=== PATIENT | male | born 1990 | race Caucasian/White ===

== ENCOUNTER 2018-04-27 11:01 | Emergency (ER) | payer OTHER | END 2018-04-27 12:35 | disposition home or self-care (01) | LOC: M ED 11:01 | DX: S90.31XA Contusion of right foot, initial encounter (principal); W17.89XA Other fall from one level to another, initial encounter; Y92.59 Other trade areas as the place of occurrence of the external cause; Y99.0 Civilian activity done for income or pay | CPT/HCPCS: 73630 ==

== ENCOUNTER → 2020-05-20 | Outpatient (CLI) | payer OTHER ==
[~2020-05-20] MED LIST: IBUP200C25 PO
--- NOTE | 2020-05-20 13:55 | REP ---
REASON: Pain. PRIORS: None. There is a distal radial fracture seen transversely along the base of the radial styloid. This is nondisplaced and there is no evidence of an intra-articular component. IMPRESSION: Distal radial fracture. Electronically Signed by Nicho Meyer DO 05/20/2020 05:26 P
--- NOTE | 2020-05-20 13:57 | REP ---
REASON: Pain after trauma. PRIORS: None. There is a nondisplaced fracture involving the distal radius at the level of the base of the radial styloid. There is no evidence of a concomitant ulnar fracture. IMPRESSION: Distal radial fracture as described above. Electronically Signed by Nicho Meyer DO 05/20/2020 05:26 P
== END ==
LOC: M WUC 09:09
PROVIDERS: ATTEND Nurse Practitioner Family
DX: M79.631 Pain in right forearm (principal); M25.531 Pain in right wrist; S52.501A Unspecified fracture of the lower end of right radius, initial encounter for closed fracture

== ENCOUNTER 2020-07-07 09:23 | Emergency (ER) | payer OTHER ==
[~2020-07-07] VITALS: Ht 180.3 cm; Wt 84.0 kg
--- NOTE | 2020-07-07 09:56 | REPVR ---
PROCEDURE INFORMATION: Exam: XR Right Wrist Exam date and time: 07/07/2020 9:45 AM Age: 30 years old Clinical indication: Pain and injury or trauma; Injury history: Was installing large window that ended up shattering; Work related; Initial encounter; Swelling (edema); Right; Injury details: PT states had recently FX HX wrist and was just cleared and went to install large window and it shattered TECHNIQUE: Imaging protocol: XR Right wrist. Views: 3 or more views. COMPARISON: CR WRIST COMPLETE 05/20/2020 9:25 AM FINDINGS: Bones/joints: Distal radial fracture has partially resolved, with similar alignment. There is mildly increased but not completely bridging callus formation. No new fracture is identified. The joint spaces are normally aligned. Soft tissues: There is again mild generalized soft tissue swelling. No radiopaque foreign body is identified. IMPRESSION: Healing distal radial fracture, with similar alignment to 05/20/20. No new fracture or dislocation identified. Persistent mild generalized soft tissue swelling. Electronically signed by: Naif Mi On 07/07/2020 09:57:03 AM
[2020-07-07 11:37] VITALS: BP 135/84
== END 2020-07-07 11:39 | disposition home or self-care (01) ==
LOC: M ED 09:23
DX: S63.501A Unspecified sprain of right wrist, initial encounter (principal); M79.89 Other specified soft tissue disorders; X50.1XXA Overexertion from prolonged static or awkward postures, initial encounter; Y92.330 Ice skating rink (indoor) (outdoor) as the place of occurrence of the external cause; Y93.H3 Activity, building and construction; Y99.0 Civilian activity done for income or pay; S52.501D Unspecified fracture of the lower end of right radius, subsequent encounter for closed fracture with routine healing; X58.XXXD Exposure to other specified factors, subsequent encounter

== ENCOUNTER 2021-12-24 14:41 | Emergency (ER) | payer OTHER ==
[~2021-12-24] VITALS: Ht 180.3 cm; Wt 90.2 kg
[2021-12-24 14:42] VITALS: BP 161/84
== END 2021-12-24 17:02 | disposition left against medical advice (07) ==
LOC: M ED 14:41
DX: Z53.21 Procedure and treatment not carried out due to patient leaving prior to being seen by health care provider (principal)

== ENCOUNTER → 2023-02-02 | Outpatient (CLI) | payer OTHER ==
[2023-02-02 21:53] LABS: BASO # 0.1 10^3/uL (0.0-0.2); EOS # 0.1 10^3/uL (0.0-0.5); EOS % 2.3 % (0.0-3.0); HEMOGLOBIN 13.2 g/dl (13.5-17.5); LYMPH # 1.8 10^3/uL (1.5-5.0); LYMPH % 36.5 % (24.0-44.0); MEAN CORPUSCULAR HEMOGLOBIN 31.6 pg (27.0-33.0); MEAN CORPUSCULAR HGB CONC 33.8 g/dl (32.0-36.5); MEAN CORPUSCULAR VOLUME 93.3 fl (80.0-96.0); MONO # 0.5 10^3/uL (0.0-0.8); MONO % 10.6 % (2.0-8.0); NEUTROPHILS # 2.4 10^3/uL (1.5-8.5); NEUTROPHILS % 49.4 % (36.0-66.0); PLATELET COUNT, AUTOMATED 208 10^3/uL (150-450); RED BLOOD COUNT 4.18 10^6/uL (4.30-6.10); WHITE BLOOD COUNT 4.8 10^3/uL (4.0-10.0)
[2023-02-02 22:08] LABS: ALKALINE PHOSPHATASE 50 U/L (46-116); ALT/SGPT 23 U/L (7.0-40); AST/SGOT 22 U/L (<34); BILIRUBIN,TOTAL 0.8 MG/DL (0.3-1.2); BLOOD UREA NITROGEN 17 MG/DL (9-23); CALCIUM LEVEL 9.2 MG/DL (8.5-10.1); CARBON DIOXIDE LEVEL 28 MMOL/L (20-31); CHLORIDE LEVEL 105 MMOL/L (98-107); CHOLESTEROL LEVEL 173 MG/DL (<200); GLOMERULAR FILTRATION RATE > 60.0 (>60); GLUCOSE, FASTING 91 MG/DL (60-100); HDL CHOLESTEROL 69.1 MG/DL (>40); LDL CHOLESTEROL 95.5 MG/DL (<100); NON-HDL-C 103.9 MG/DL; POTASSIUM SERUM 3.9 MMOL/L (3.5-5.1); SODIUM LEVEL 138 MMOL/L (136-145); TOTAL PROTEIN 6.7 G/DL (5.7-8.2); TRIGLYCERIDES LEVEL 42 MG/DL (<150)
[2023-02-02 22:12] LABS: THYROID STIMULATING HORMONE 1.742 uIU/ML (0.55-4.78)
[2023-02-02 22:33] LABS: HEMOGLOBIN A1c 4.8 % (4.0-6.0)
== END ==
LOC: M WUC 15:27
PROVIDERS: ATTEND Physician Assistant
DX: Z13.220 Encounter for screening for lipoid disorders (principal); Z13.29 Encounter for screening for other suspected endocrine disorder; R39.12 Poor urinary stream
CPT/HCPCS: 36415; 80053; 80061; 83036; 84439; 84443; 85025; G0103

== ENCOUNTER → 2023-02-15 | Outpatient (CLI) | payer OTHER | LOC: M PLAIMG 06:56 | PROVIDERS: ATTEND Physician Assistant | DX: M54.2 Cervicalgia (principal); M47.812 Spondylosis without myelopathy or radiculopathy, cervical region ==